=== PATIENT | male | born 1980 | race Caucasian/White ===

== ENCOUNTER 2021-01-19 13:42 | Outpatient (REF) | payer MEDICAID, SELFPAY ==
[2021-01-19 21:29] LABS: Anion Gap 10.3 mmol/L (3-11); BUN 5 mg/dL (7-18); CO2 28.7 mmol/L (21.0-32.0); CREATININE 0.8 mg/dL (0.70-1.30); Calcium 9.8 mg/dL (8.5-10.1); Chloride 90 mmol/L (98-107); Glucose 153 mg/dL (74-106); Sodium 129 mmol/L (136-145)
== END 2021-01-19 13:43 | disposition home or self-care (01) ==
LOC: NCHCN 13:42
PROVIDERS: Visit Provider Nurse Practitioner Family
DX: R80.9 Proteinuria, unspecified (principal); R03.0 Elevated blood-pressure reading, without diagnosis of hypertension
CPT/HCPCS: 80048

== ENCOUNTER 2021-02-10 00:48 | Outpatient (CLI) | payer MEDICAID, SELFPAY ==
[2021-02-10 12:32] LABS: Hemoglobin A1C 5.5 % (<5.7)
[2021-02-10 12:44] LABS: Anion Gap 8.1 mmol/L (3-11); BUN 6 mg/dL (7-18); CO2 28.9 mmol/L (21.0-32.0); CREATININE 0.8 mg/dL (0.70-1.30); Chloride 99 mmol/L (98-107); Glucose 97 mg/dL (74-106); Potassium 4.1 mmol/L (3.5-5.1); Sodium 136 mmol/L (136-145); TSH (W/Ref FT4) 1.28 uIU/mL (0.36-3.74)
[2021-02-10 12:56] LABS: Calculated LDL 93 mg/dL (<100); Cholesterol 167 mg/dL (<200); HDL Cholesterol 65 mg/dL (40-60); Triglyceride 46 mg/dL (<150)
[2021-02-10] MEDS: Omnipaque 350 MG/ML 100 ML BTL IJ (13:12)
[2021-02-10] MEDS: Normal Saline - Diluent 50 ML VIAL IV (13:13)
[2021-02-10] MEDS: Normal Saline Flush 10 ML SYR IVP (13:13)
--- NOTE | 2021-02-10 13:30 | DI.CT_ITS ---
Exam(s) CT CHEST/ABD/PEL W EXAM: CT CHEST/ABD/PEL W CLINICAL HISTORY: ELEVATED BLOOD GLUCOSE,R73.9,HYPONATREMIA,E87.1. TECHNIQUE: Imaging Protocol: Axial computed tomography images with coronal and sagittal reformatted images were created and reviewed CONTRAST MATERIAL: Intravenous: Omnipaque 350 Contrast volume:100 ml Oral: Yes COMPARISON: No prior exams were available for comparison FINDINGS: CHEST: PULMONARY ARTERIES: There are no intraluminal filling defects to suggest acute pulmonary emboli. No evidence of pulmonary infarction. LUNGS: Mild increased dependent markings both posterior lungs. No confluent infiltrates. No pleural effusions. No ominous pulmonary nodules.. No significant focal findings in the trachea and mainste m bronchi. No bronchiectasis MEDIASTINUM: There is no hilar nor mediastinal adenopathy. Visualized thyroid unremarkable. CARDIAC: Heart size is normal. There is no pericardial effusion.Caliber of the thoracic aorta is wit hin normal limits. OSSEOUS: No significant osseous lesions.. ABDOMEN: There is no ascites. LIVER: There are no focal hepatic lesions nor dilatation of intrahepatic ducts. GALLBLADDER/BILIARY: No obvious gallbladder pathology. CBD is not dilated. PANCREAS: No evidence of pancreatic mass nor dilatation of the pancreatic duct. SPLEEN: Spleen is not enlarged. There are no intrasplenic lesions. Splenic and portal veins are carvalho nt. ADRENALS: There are no significant adrenal masses. KIDNEYS: No calculi nor hydronephrosis. No solid renal masses. No cysts evident. ABDOMINAL AORTA: Abdominal aorta is not enlarged. LYMPH NODES: There is no retroperitoneal nor paraaortic adenopathy. ABDOMINAL WALL: No evidence of significant anterior abdominal wall hernia. GI: There is no evidence of bowel obstruction. PELVIS: LYMPH NODES: There is no intrapelvic nor inguinal adenopathy. GI: No evidence of appendicitis.No evidence of sigmoid diverticulitis. URINARY BLADDER: No calculi nor masses evident REPRODUCTIVE: Age-appropriate OSSEOUS: No significant osseous lesions. IMPRESSION: 1. No evidence of pulmonary emboli nor pulmonary infarction. No pleural effusions. No intrathoracic adenopathy. No significant focal pulmonary findings 2. No acute findings in the abdomen and pelvis. 3. No ascites. RADIATION DOSE DELIVERED: 961.1mGy.cm Total DLP DATA REPOSITORY: All CT scans at this facility are submitted to the National Radiology Data Registry (NRDR) Dose Index Registry (DIR) with the [employer] ([employer]). RADIATION OPTIMIZATION: All CT scans at this facility use at least one of these dose optimization te chniques: automated exposure control; mA and/or kV adjustment per patient size (includes targeted exa ms where dose is matched to clinical indication); or iterative reconstruction.
[2021-02-10] MEDS: Breeza Beverage 473 ML BTL PO (13:42)
[2021-02-10] MEDS: Omnipaque 350 MG/ML 50 ML BTL PO (13:45)
[2021-02-10 21:29] LABS: Osmolality, Urine 342 mOsm/kg (150-1,150)
== END 2021-02-10 01:08 ==
PROVIDERS: Visit Provider Nurse Practitioner Family
DX: R73.9 Hyperglycemia, unspecified (principal); E87.1 Hypo-osmolality and hyponatremia
CPT/HCPCS: 36415; 74177; 80048; 80061; 83935; 71260; 83036; 84443; J3490; Q9967

== ENCOUNTER 2021-06-24 13:33 | Outpatient (REF) | payer MEDICAID, SELFPAY ==
[2021-06-24 21:24] LABS: Anion Gap 7.2 mmol/L (3-11); BUN 6 mg/dL (7-18); CO2 28.8 mmol/L (21.0-32.0); CREATININE 0.8 mg/dL (0.70-1.30); Calcium 9.5 mg/dL (8.5-10.1); Chloride 97 mmol/L (98-107); Glucose 112 mg/dL (74-106); Potassium 4.6 mmol/L (3.5-5.1); Sodium 133 mmol/L (136-145)
== END 2021-06-24 13:34 | disposition home or self-care (01) ==
LOC: NCHCN 13:33
PROVIDERS: Visit Provider Nurse Practitioner Family
DX: R03.0 Elevated blood-pressure reading, without diagnosis of hypertension (principal); E87.1 Hypo-osmolality and hyponatremia; R73.9 Hyperglycemia, unspecified; R80.9 Proteinuria, unspecified
CPT/HCPCS: 80048

== ENCOUNTER 2021-11-11 18:08 | Outpatient (REF) | payer MEDICAID, SELFPAY ==
[2021-11-11 21:36] LABS: Anion Gap 8.7 mmol/L (3-11); BUN 9 mg/dL (7-18); CO2 28.3 mmol/L (21.0-32.0); CREATININE 0.9 mg/dL (0.70-1.30); Calcium 9.6 mg/dL (8.5-10.1); Chloride 96 mmol/L (98-107); Glucose 105 mg/dL (74-106); Potassium 4.3 mmol/L (3.5-5.1); Sodium 133 mmol/L (136-145)
== END 2021-11-11 18:09 | disposition home or self-care (01) ==
LOC: NCHCN 18:08
PROVIDERS: Visit Provider Nurse Practitioner Family
DX: R73.9 Hyperglycemia, unspecified (principal); E87.1 Hypo-osmolality and hyponatremia; R03.0 Elevated blood-pressure reading, without diagnosis of hypertension
CPT/HCPCS: 80048